=== PATIENT | female | born 1985 | race Two or more races ===

== ENCOUNTER 2020-02-18 14:30 | Inpatient (IN) | payer OTHER ==
[~2020-02-18] VITALS: Ht 165.1 cm; Wt 91.6 kg
[2020-03-02] MEDS ORDERED: PRENATAL TABLE1 EAC1 PO (08:54)
== END 2020-03-04 16:27 | disposition home or self-care (01) | DRG 807 ==
LOC: LDR 02-27 14:30 → OB/GYN 03-02 23:22
PROVIDERS: ADMIT Obstetrics & Gynecology; ATTEND Obstetrics & Gynecology
PROC: 10E0XZZ Delivery of Products of Conception, External Approach (ICD-10-PCS; principal; 2020-03-04)
PROC: 4A1HXFZ Monitoring of Products of Conception, Cardiac Rhythm, External Approach (ICD-10-PCS; 2020-03-04)
PROC: 10D07Z6 Extraction of Products of Conception, Vacuum, Via Natural or Artificial Opening (ICD-10-PCS; 2020-03-04)
PROC: 0W8NXZZ Division of Female Perineum, External Approach (ICD-10-PCS; 2020-03-04)
DX: O75.89 Other specified complications of labor and delivery (principal); Z37.0 Single live birth; Z3A.40 40 weeks gestation of pregnancy; Z20.828 Contact with and (suspected) exposure to other viral communicable diseases